=== PATIENT | female | born 1955 | race Caucasian/White ===

== ENCOUNTER → 2016-05-25 | Outpatient (CLI) | payer OTHER ==
[~2016-05-25] VITALS: Ht 162.6 cm; Wt 114.9 kg
[~2016-05-25] MED LIST: AMLO-114 PO; BUPR-83 PO; CHOL200010 PO; DULO-24 PO; ERGO500037 PO; LOSA100T65 PO; OMEP20CA59 PO; PHEN30CA PO; VALA500T60 PO; VITAMIN B12 SL
[2016-05-25 14:53] VITALS: BP 150/89; PULSE 98; Ht 162.6 cm; Wt 114.9 kg
== END | disposition home or self-care (01) ==
LOC: C.NEUR 14:08
PROVIDERS: ATTEND Internal Medicine Pulmonary Disease
DX: G47.33 Obstructive sleep apnea (adult) (pediatric) (principal); D86.9 Sarcoidosis, unspecified; J45.909 Unspecified asthma, uncomplicated

== ENCOUNTER → 2016-10-12 | Outpatient (CLI) | payer OTHER ==
[2016-10-12 12:44] LABS: ALT/SGPT 44 U/L (12-78); BLOOD UREA NITROGEN 17 mg/dl (7-18); BUN/CREATININE RATIO 20.9 (10-20); CARBON DIOXIDE 31 mmol/L (21-32); CHLORIDE 107 mmol/L (98-107); CREATININE 0.79 mg/dl (0.60-1.20); GLUCOSE 114 mg/dl (70-99); POTASSIUM 4.1 mmol/L (3.5-5.1); SODIUM 142 mmol/L (136-145)
[2016-10-12 12:47] LABS: ALKALINE PHOSPHATASE 76 U/L (45-117); AST/SGOT 26 U/L (15-37)
[2016-10-12 12:51] LABS: CALCIUM 9.5 mg/dl (8.5-10.1)
[2016-10-12 13:20] LABS: ESTIMATED AVERAGE GLUCOSE 131 mg/dl; HA1C FLAG Normal (Normal)
== END | disposition home or self-care (01) ==
LOC: C.LABPVFM 10:27
PROVIDERS: ATTEND Nurse Practitioner
DX: R73.03 Prediabetes (principal); I10 Essential (primary) hypertension; E55.9 Vitamin D deficiency, unspecified; R00.2 Palpitations; R61 Generalized hyperhidrosis; R60.9 Edema, unspecified; E78.5 Hyperlipidemia, unspecified

== ENCOUNTER → 2016-10-27 | Outpatient (CLI) | payer OTHER | END | disposition home or self-care (01) | LOC: C.LABPVFM 13:14 | PROVIDERS: ATTEND Nurse Practitioner | DX: R00.2 Palpitations (principal) ==

== ENCOUNTER → 2017-01-11 | Outpatient (CLI) | payer OTHER ==
[~2017-01-11] VITALS: Ht 162.6 cm; Wt 115.3 kg
[~2017-01-11] MED LIST changes: +PHEN1CAP PO; -PHEN30CA PO
[2017-01-11 14:03] VITALS: BP 126/84; PULSE 86; Ht 162.6 cm; Wt 115.3 kg
== END | disposition home or self-care (01) ==
LOC: C.NEUR 13:48
PROVIDERS: ATTEND Physician Assistant
DX: G47.33 Obstructive sleep apnea (adult) (pediatric) (principal); D86.9 Sarcoidosis, unspecified

== ENCOUNTER → 2017-01-26 | Outpatient (CLI) | payer OTHER ==
--- NOTE | 2017-01-26 15:59 | DIAGNOSTIC IMAGING REPORT ---
TWO VIEW CHEST CLINICAL HISTORY: Sarcoidosis. FINDINGS: PA and lateral chest radiographs are compared to study dated 12/10/2015. The examination is degraded by large body habitus. The cardiomediastinal silhouette is unremarkable. There is mild atherosclerotic calcification of the thoracic aorta. There are low lung volumes with chronic elevation of the right hemidiaphragm. The lungs and pleural spaces are clear. There is no pneumothorax. The skeletal structures are osteopenic. The bony thorax appears intact. Fusion hardware is seen in the lower cervical spine. A gastric band is present in left upper quadrant. IMPRESSION: No active disease in the chest. Electronically signed by: Kelvin Erwin M.D. 01/26/2017 2:55 PM Dictated Date/Time: 01/26/2017 2:54 PM
== END | disposition home or self-care (01) ==
LOC: C.RADPV 14:38
PROVIDERS: ATTEND Physician Assistant
DX: D86.9 Sarcoidosis, unspecified (principal)

== ENCOUNTER → 2017-02-10 | Outpatient (CLI) | payer OTHER | END | disposition home or self-care (01) | LOC: C.LABPVFM 17:48 | PROVIDERS: ATTEND Family Medicine | DX: J02.9 Acute pharyngitis, unspecified (principal) ==

== ENCOUNTER → 2017-06-08 | Outpatient (CLI) | payer OTHER ==
[~2017-06-08] MED LIST changes: -PHEN1CAP PO; +PHEN30CA PO
[2017-06-08 13:28] LABS: HEMOGLOBIN A1C 6.3 % (4.5-5.6)
[2017-06-08 13:31] LABS: BLOOD UREA NITROGEN 15 mg/dl (7-18); CALCIUM 9.3 mg/dl (8.5-10.1); CARBON DIOXIDE 27 mmol/L (21-32); CREATININE 0.89 mg/dl (0.60-1.20); GLUCOSE 143 mg/dl (70-99); POTASSIUM 3.7 mmol/L (3.5-5.1); SODIUM 137 mmol/L (136-145)
[2017-06-08 13:34] LABS: CHOLESTEROL 219 mg/dl (0-200); LDL CHOLESTEROL CALCULATED 125 mg/dl
== END | disposition home or self-care (01) ==
LOC: C.LABPVFM 09:00
PROVIDERS: ATTEND Nurse Practitioner
DX: E55.9 Vitamin D deficiency, unspecified (principal); E78.5 Hyperlipidemia, unspecified; I10 Essential (primary) hypertension; R73.01 Impaired fasting glucose

== ENCOUNTER → 2017-07-23 | Outpatient (CLI) | payer OTHER ==
[~2017-07-23] MED LIST changes: -BUPR-83 PO; -CHOL200010 PO; +FLUT0.15 NAE; +FURO-85 PO; +HYDR12.55 PO; +MECL1TAB42 PO; +METF500T5 PO; -PHEN30CA PO; +POTA10CA28 PO; +PRVHFAIN INH
--- NOTE | 2017-07-23 11:01 | DIAGNOSTIC IMAGING REPORT ---
CHEST 2 VIEWS ROUTINE CLINICAL HISTORY: COUGH, FATIGUE dyspnea COMPARISON STUDY: 01/26/2017 FINDINGS: The bones soft tissues and hemidiaphragms are normal. The cardiomediastinal silhouette is normal. The lungs are clear. The pulmonary vasculature is normal. IMPRESSION: Negative chest. The above report was generated using voice recognition software. It may contain grammatical, syntax or spelling errors. Electronically signed by: Magdy Holland M.D. 07/23/2017 10:59 AM Dictated Date/Time: 07/23/2017 10:59 AM
== END | disposition home or self-care (01) ==
LOC: C.RADPV 10:42
PROVIDERS: ATTEND Nurse Practitioner
DX: R05 Cough (principal); R53.83 Other fatigue

== ENCOUNTER 2017-08-05 16:33 | Emergency (ER) | payer OTHER ==
[~2017-08-05] VITALS: Ht 165.1 cm; Wt 115.0 kg
[2017-08-05 16:36] VITALS: TEMP 36.7; Ht 165.1 cm; Wt 115.0 kg
[2017-08-05] MEDS ORDERED: SODIUM CHLORIDE 0.9% 1000ML 1,000 ML IV STA (17:27)
[2017-08-05] MEDS ORDERED: ONDANSETRON INJ 2 MG/ML 2 ML VIAL IV STA (17:27)
[2017-08-05] MEDS ORDERED: FAMOTIDINE 20MG/5ML IV PUSH IV STA (17:27)
--- NOTE | 2017-08-05 17:34 | EMERGENCY ROOM VISIT NOTE ---
History Report prepared by Tess: Brandon Clay Under the Supervision of: Dr. Genesis Murillo D.O. First contact with patient: 17:13 Chief Complaint: CHEST PAIN Stated Complaint: CHEST PAIN/VOMITING History of Present Illness The patient is a 62 year old female who presents to the Emergency Room with complaints of worsening chest pain starting last night. The patient additionally notes that she started vomiting last night, and she has been unable to keep anything down including food, liquid, and medications. She notes that she has this chest pain constantly even without vomiting, and she states that the pain is worse with laying flat. The patient notes that she has been sick on and off for the past month, and she had flu, then bronchitis, and then a stomach bug. The patient states that she has had similar chest pain years ago , and it turned out to be arthritis, and she states that she has a history of GERD. She has had an endoscopy, and she had a hiatal hernia, and she did not have any ulcers or bleeding. The patient denies any recent dietary changes or medication changes other than some nausea medications last week. She additionally notes that she has been having some abdominal pain where she had a Lap Band. The patient denies any diarrhea, change in bowel movements, black stools, bloody stools, trouble urinating, fevers, chills, and new leg swelling. The patient is a former smoker, and she states that she has a family history of heart attacks at the age of 70. Source of History: patient Onset: last night Position: chest Timing: worsening Modifying Factors (Worsening): other (laying down) Associated Symptoms: + vomiting, + abdominal pain, No fevers, No chills, No diarrhea Review of Systems See HPI for pertinent positives & negatives. A total of 10 systems reviewed and were otherwise negative. Past Medical & Surgical Medical Problems: (1) Anxiety (2) Asthma (3) Asthma, Unspecified (4) CAD (coronary artery disease) (5) Depression (6) Dyslipidemia (7) Gastroesophageal reflux (8) Genital herpes (9) GERD (gastroesophageal reflux disease) (10) Hypertension (11) Hypertension Nos (12) Lumbago (13) Obesity (14) Prediabetes (15) Sarcoidosis (16) Sarcoidosis (17) Vitamin B12 deficiency (18) Vitamin D deficiency Surgical Problems: (1) History of appendectomy (2) History of appendectomy (3) History of cervical spinal arthrodesis (4) History of cholecystectomy (5) History of laparoscopic adjustable gastric banding (6) History of tubal ligation (7) Hx of cholecystectomy (8) LAP-BAND surgery status Family History No pertinent family history Social History Smoking Status: Former Smoker Marital Status: Housing Status: lives with family Occupation Status: employed Current/Historical Medications Scheduled Albuterol (Ventolin Hfa), 2 PUFFS INH PRN Amlodipine (Norvasc), 5 MG PO QPM Duloxetine HCl (Cymbalta), 40 CAP PO QPM Ergocalciferol (Vitamin D 03893 Unit), 50,000 UNIT PO WK Fluticasone Propionate (Nasal) (Flonase Allergy Relief), 1 SPRAY KOFI DAILY Losartan Potassium (Cozaar), 100 MG PO QPM Meclizine Hcl (Meclizine Hcl), 1 TAB PO PRN Metformin Hcl Er (Glucophage Er), 2 TAB PO DAILY Omeprazole (Prilosec), 20 MG PO DAILY Potassium Chloride (Micro-K Ext Rel), 10 MEQ PO PRN Valacyclovir (Valtrex), 500 MG PO QPM Scheduled PRN Furosemide (Lasix), 0.5 TAB PO DAILY PRN for PRN Allergies Coded Allergies: WERNER Inhibitors (Verified Allergy, Unknown, UNKNOWN, 08/05/17) Clarithromycin (Verified Allergy, Unknown, UNKNOWN, 08/05/17) Hydrochlorothiazide (Verified Allergy, Unknown, ., 12/10/15) Meloxicam (Verified Allergy, Unknown, UNKNOWN, 12/10/15) Rofecoxib (Verified Allergy, Unknown, UNKNOWN, 12/10/15) Sulfa Antibiotics (Verified Allergy, Unknown, "SULFA DRUGS" ALLERGY, ) Prochlorperazine (Verified Adverse Reaction, Unknown, NERVOUS LEGS, ) Physical Exam Vital Signs Date Time Temp Pulse Resp B/P (MAP) Pulse Ox O2 Delivery O2 Flow Rate FiO2 08/05/17 22:27 78 16 131/108 96 08/05/17 21:46 81 16 179/115 95 Room Air 08/05/17 20:41 87 18 96 Room Air 08/05/17 20:06 92 16 175/110 96 Room Air 08/05/17 18:30 79 08/05/17 17:55 81 12 191/116 98 Room Air 08/05/17 17:48 97 Room Air 08/05/17 17:45 97 Room Air 08/05/17 16:36 36.7 93 18 150/104 95 Room Air Physical Exam GENERAL: alert, well appearing, well nourished, no distress, non-toxic EYE EXAM: normal conjunctiva, PERRL and EOM's grossly intact OROPHARYNX: no exudate, no erythema, lips, buccal mucosa, and tongue normal and mucous membranes are dry. NECK: supple, no nuchal rigidity, no adenopathy, non-tender LUNGS: Clear to auscultation. No wheezes rhonchi or rales. Normal chest wall mechanics HEART: no murmurs, S1 normal and S2 normal CHEST: Some tenderness to the left sternal border and epigastric and left costal margin inferiorly. ABDOMEN: abdomen soft, normo-active bowel sounds, no masses, no rebound or guarding. BACK: Back is symmetrical on inspection and there is no deformity, no midline tenderness, no CVA tenderness. SKIN: no rashes and no bruising UPPER EXTREMITIES: upper extremities are grossly normal. LOWER EXTREMITIES: No pitting edema. NEURO EXAM: Normal sensorium, cranial nerves II-XII grossly intact, normal speech, no gross weakness of arms, no gross weakness of legs. Medical Decision & Procedures ER Provider Diagnostic Interpretation: ABDOMEN 2VIEW W/PA CHEST RTN HISTORY: 62 years-old Female chest pain, epigastric pain, vomiting acute atypical chest pain with vomiting and epigastric pain COMPARISON: Chest radiographs 07/23/2017 TECHNIQUE: PA view of the chest with erect and supine views of the abdomen FINDINGS: Cardiac silhouette is mildly enlarged. Atherosclerosis of the aorta. No pneumothorax, pleural effusion, focal airspace consolidation or overt pulmonary edema. Mild right hemidiaphragmatic elevation. The bones of the chest appear to be grossly intact. Fusion hardware of the cervical spine is noted. Cholecystectomy clips noted. Gastric band of the left upper abdomen is noted with increased phi Angle of approximately 80 degrees. There is a small air-fluid level of the epigastric abdomen possibly stomach. Bowel gas pattern is nonobstructive with air filled nondilated small bowel the central abdomen. No pneumatosis or pneumoperitoneum identified. Moderate stool volume throughout the colon suggest constipation. No urolith identified. Calcifications of the pelvis suggest phleboliths. IMPRESSION: 1. No acute process of the chest. 2. Nonobstructive bowel gas pattern without pneumoperitoneum. 3. Gastric band of the left upper abdomen is noted with increased phi Angle of approximately 80 degrees. Correlate clinically to assess for band malfunction. 4. Suggested constipation. The above report was generated using voice recognition software. It may contain grammatical, syntax or spelling errors. Electronically signed by: Trace Souza M.D. 08/05/2017 6:33 PM Dictated Date/Time: 08/05/2017 6:26 PM ABDOMEN AND PELVIS CT WITH IV AND ORAL CONTRAST CT DOSE: 1418.27 mGy.cm HISTORY: Acute epigastric abdominal pain with gastric band epigastric pain; prior lap band TECHNIQUE: Multiaxial CT images of the abdomen and pelvis were performed following the use of intravenous and oral contrast. A dose lowering technique was utilized adhering to the principles of ALARA. COMPARISON STUDY: Acute abdominal series radiographs of same day.. FINDINGS: 5 mm nodule of the right lower lobe is seen on image 19 series 3 is mild subsegmental groundglass right basilar opacities suggesting atelectasis. There is no pneumatosis or pneumoperitoneum identified. Imaged inferior cardiac chambers are unremarkable with coronary arterial disease. Prior cholecystectomy. Decreased attenuation of the liver suggests fatty infiltration. Liver otherwise appears unremarkable. Spleen, pancreas and adrenal glands are within normal limits. Mild nonspecific bilateral perinephric stranding. There is contrast in the bilateral renal collecting systems secondary to delayed phase of imaging. No renal calculi or obstructive uropathy identified. No filling defects identified within the collecting systems or ureters. No suspicious renal mass lesions. Urinary bladder, uterus and adnexa are unremarkable. Mild atherosclerosis of the aorta without aneurysm. No bulky adenopathy. Surgical karen are noted within the right inguinal tissues. Gastric band is in place with abnormal phi angle redemonstrated of approximately 80 degrees. Port of the anterior left abdominal wall is noted with catheter leading up to the gastric band appearing to be in place. The band itself appears intact surrounding the upper gastric lumen. No evidence of band fracture or distal migration. Oral contrast is noted within the distal esophagus, gastric pouch, distal stomach and also within the small bowel excluding obstruction. No surrounding inflammatory changes. No bowel obstruction or focal bowel wall thickening identified. Mild colonic diverticulosis without CT evidence of acute diverticulitis. Moderate volume of formed stool throughout the colon compatible with constipation. The appendix is not definitively seen, likely surgically absent. Soft tissues are unremarkable. Bone on of the left iliac wing. No suspicious bone lesions are identified. Multilevel degenerative changes about the spine. IMPRESSION: 1. Gastric band in place with no definite evidence of band malposition, erosion or gastric perforation. Oral contrast is present within the gastric pouch, distal gastric lumen and small bowel excluding obstruction. No focal bowel wall thickening. 2. Mild colonic diverticulosis without diverticulitis. 3. Suggested constipation. 4. Fatty infiltration of the liver. 5. Prior cholecystectomy. Electronically signed by: Trace Souza M.D. 08/05/2017 9:38 PM Dictated Date/Time: 08/05/2017 9:26 PM Laboratory Results 08/05/17 17:42 Red Blood Count 5.09, Mean Corpuscular Volume 93.7, Mean Corpuscular Hemoglobin 31.8, Mean Corpuscular Hemoglobin Concent 34.0, Mean Platelet Volume 10.4, Neutrophils (%) (Auto) 67.0, Lymphocytes (%) (Auto) 23.2, Monocytes (%) (Auto) 7.4, Eosinophils (%) (Auto) 1.6, Basophils (%) (Auto) 0.6, Neutrophils # (Auto) 6.53, Lymphocytes # (Auto) 2.26, Monocytes # (Auto) 0.72, Eosinophils # (Auto) 0.16, Basophils # (Auto) 0.06 08/05/17 17:42 Test 08/05/17 17:42 08/05/17 20:40 White Blood Count 9.75 K/uL (4.8-10.8) Red Blood Count 5.09 M/uL (4.2-5.4) Hemoglobin 16.2 g/dL (12.0-16.0) Hematocrit 47.7 % (37-47) Mean Corpuscular Volume 93.7 fL (80-100) Mean Corpuscular Hemoglobin 31.8 pg (25-34) Mean Corpuscular Hemoglobin Concent 34.0 g/dl (32-36) Platelet Count 278 K/uL (130-400) Mean Platelet Volume 10.4 fL (7.4-10.4) Neutrophils (%) (Auto) 67.0 % Lymphocytes (%) (Auto) 23.2 % Monocytes (%) (Auto) 7.4 % Eosinophils (%) (Auto) 1.6 % Basophils (%) (Auto) 0.6 % Neutrophils # (Auto) 6.53 K/uL (1.4-6.5) Lymphocytes # (Auto) 2.26 K/uL (1.2-3.4) Monocytes # (Auto) 0.72 K/uL (0.11-0.59) Eosinophils # (Auto) 0.16 K/uL (0-0.5) Basophils # (Auto) 0.06 K/uL (0-0.2) RDW Standard Deviation 46.1 fL (36.4-46.3) RDW Coefficient of Variation 13.3 % (11.5-14.5) Immature Granulocyte % (Auto) 0.2 % Immature Granulocyte # (Auto) 0.02 K/uL (0.00-0.02) Prothrombin Time 10.1 SECONDS (9.0-12.0) Prothromb Time International Ratio 1.0 (0.9-1.1) D-Dimer 380 ug/L FEU (0-500) Anion Gap 7.0 mmol/L (3-11) Est Creatinine Clear Calc Drug Dose 81.9 ml/min Estimated GFR () 79.9 Estimated GFR (Non- 69.0 BUN/Creatinine Ratio 14.4 (10-20) Calcium Level 9.7 mg/dl (8.5-10.1) Magnesium Level 2.3 mg/dl (1.8-2.4) Total Bilirubin 0.6 mg/dl (0.2-1) Aspartate Amino Transf (AST/SGOT) 50 U/L (15-37) Alanine Aminotransferase (ALT/SGPT) 114 U/L (12-78) Alkaline Phosphatase 86 U/L (45-117) Troponin I < 0.015 ng/ml (0-0.045) Pro-B-Type Natriuretic Peptide 57 pg/ml (0-900) Total Protein 8.0 gm/dl (6.4-8.2) Albumin 4.1 gm/dl (3.4-5.0) Globulin 3.9 gm/dl (2.5-4.0) Albumin/Globulin Ratio 1.1 (0.9-2) Lipase 213 U/L (73-393) Thyroid Stimulating Hormone (TSH) 1.210 uIu/ml (0.300-4.500) Influenza Type A Antigen Neg for Influ A (NEG) Influenza Type B Antigen Neg for Influ B (NEG) Bedside Troponin I < 0.030 ng/ml (0-0.045) Laboratory results per my review. Medications Administered Medications (Trade) Dose Ordered Sig/Jose Luis Route Start Time Stop Time Status Last Admin Dose Admin Sodium Chloride 1,000 ml @ 999 mls/hr Q1H1M STAT IV 08/05/17 17:27 08/05/17 18:27 DC 08/05/17 17:54 999 MLS/HR Famotidine (Pepcid 20mg Iv Push) 20 mg ONE STAT IV 08/05/17 17:27 08/05/17 17:30 DC 08/05/17 17:54 20 MG Ondansetron HCl (Zofran Inj) 4 mg NOW STAT IV 08/05/17 17:27 08/05/17 17:30 DC 08/05/17 17:54 4 MG Acetaminophen 650 mg/Empty Bag 65 ml @ 260 mls/hr NOW STAT IV 08/05/17 18:06 08/05/17 18:20 DC 08/05/17 18:25 260 MLS/HR Amlodipine Besylate (Norvasc Tab) 10 mg NOW ONCE PO 08/05/17 19:15 08/05/17 19:16 DC 08/05/17 19:34 5 MG Losartan Potassium (coZAAR TAB) 100 mg NOW STAT PO 08/05/17 19:05 08/05/17 19:06 DC 08/05/17 19:34 100 MG Al Hydroxide/Mg Hydroxide (Maalox Susp) 30 ml NOW STAT PO 08/05/17 19:41 08/05/17 19:42 DC 08/05/17 20:05 30 ML ECG Per My Interpretation Indication: chest pain Rate (beats per minute): 81 Rhythm: normal sinus Findings: no acute ischemic change, left axis deviation, no ectopy ED Course 1712: The patient was evaluated in room C11. A complete history and physical exam was performed. 1846: Pt states feeling slightly better. 2047: Pt tolerating po, no further vomiting. Updated on results. 2135: Pt improved, updated on all results. Medical Decision Differential diagnosis: Etiologies such as cardiac ischemia, aortic dissection, pulmonary embolism, pneumonia, pneumothorax, musculoskeletal, infections, pericarditis, myocarditis , esophageal rupture, gastrointestinal, as well as others were entertained. Patient improved her following stomach medications and IV fluids. Labs and imaging are reassuring. I do not suspect an acute malfunction of the patient's lap band, occult GI bleed, perforation, mesenteric ischemia, bowel obstruction. I have a low suspicion for ACS despite patient's risk factors. Troponins 2 negative. Doubt dissection, PE, or other acute pulmonary pathology. Likely patient's pain related to an exacerbation of her GERD/gastritis due to recent vomiting. Patient with recent illness was likely viral given exposure to sick contacts. Patient has ondansetron at home that she was previously given. Doubt additional occult infectious etiology. Mildly elevated LFTs likely reactive secondary to recent viral syndrome. Patient's hypertension here likely due to having missed her usual blood pressure medications today due to nausea and vomiting this morning. Patient given a dose of her usual medications here following improvement in her symptoms with improvement in her blood pressure subsequently. Medication Reconcilliation Current Medication List: was personally reviewed by me Blood Pressure Screening Patient's blood pressure: Elevated blood pressure Blood pressure disposition: Referred to PCP Impression Primary Impression: Non-cardiac chest pain Additional Impressions: Epigastric pain Vomiting GERD (gastroesophageal reflux disease) Elevated LFTs Hypertension Scribe Attestation The scribe's documentation has been prepared under my direction and personally reviewed by me in its entirety. I confirm that the note above accurately reflects all work, treatment, procedures, and medical decision making performed by me. Departure Information Dispostion Home / Self-Care Referrals No Doctor, Assigned (PCP) Patient Instructions My [facility] Additional Instructions Please sip clear liquids and frequent intervals to stay well-hydrated. Please continue your regular medications as prescribed. Please eat a bland diet and avoid acidic food until you are feeling better as this could contribute to your reflux and stomach irritation. Please avoid any tomato-based products, citrus fruits, coffee, alcohol, or soda. Please call follow-up with your family doctor as a precaution. If you have any recurrent pain, develop trouble breathing, fevers or chills, recurrent vomiting, noticed black or bloody stools , or you have any other new or concerning symptoms, please return the emergency room. Please have your family doctor recheck your liver function tests as a precaution as 2 of them were very slightly elevated. This may be reactive secondary to your recent illness. Problem Qualifiers Additional Impressions: Vomiting Vomiting type: unspecified Vomiting Intractability: non-intractable Nausea presence: with nausea Qualified Codes: R11.2 - Nausea with vomiting, unspecified GERD (gastroesophageal reflux disease) Esophagitis presence: esophagitis presence not specified Qualified Codes: K21.9 - Gastro-esophageal reflux disease without esophagitis Hypertension Hypertension type: essential hypertension Qualified Codes: I10 - Essential ( primary) hypertension
[2017-08-05 17:45] VITALS: O2SAT 97
[2017-08-05] MEDS ORDERED: PRLSR20 PO (17:49)
[2017-08-05 17:56] LABS: BASO % 0.6 %; BASO ABS # 0.06 K/uL (0-0.2); EOS % 1.6 %; EOS ABS # 0.16 K/uL (0-0.5); HEMATOCRIT 47.7 % (37-47); HEMOGLOBIN 16.2 g/dL (12.0-16.0); IG# 0.02 K/uL (0.00-0.02); LYMPH % 23.2 %; LYMPH ABS # 2.26 K/uL (1.2-3.4); MEAN CELL VOLUME 93.7 fL (80-100); MEAN CORPUSCULAR HEMOGLOBIN 31.8 pg (25-34); MEAN PLATELET VOLUME 10.4 fL (7.4-10.4); MONO % 7.4 %; MONO ABS # 0.72 K/uL (0.11-0.59); NEUT ABS # 6.53 K/uL (1.4-6.5); PLATELET COUNT 278 K/uL (130-400); RED CELL DISTRIBUTION WIDTH CV 13.3 % (11.5-14.5); RED CELL DISTRIBUTION WIDTH SD 46.1 fL (36.4-46.3); WHITE BLOOD COUNT 9.75 K/uL (4.8-10.8)
[2017-08-05] MEDS ORDERED: ACETAMINOPHEN IV 650 MG in EMPTY BAG 0 ML IV STA (18:06)
[2017-08-05 18:16] LABS: INFLUENZA B ANTIGEN Neg for Influ B (NEG)
[2017-08-05 18:19] LABS: ALBUMIN 4.1 gm/dl (3.4-5.0); ALT/SGPT 114 U/L (12-78); BLOOD UREA NITROGEN 13 mg/dl (7-18); CALCIUM 9.7 mg/dl (8.5-10.1); CARBON DIOXIDE 28 mmol/L (21-32); CREATININE 0.89 mg/dl (0.60-1.20); GLUCOSE 131 mg/dl (70-99); LIPASE 213 U/L (73-393); POTASSIUM 3.5 mmol/L (3.5-5.1); SODIUM 137 mmol/L (136-145)
[2017-08-05 18:30] LABS: ALKALINE PHOSPHATASE 86 U/L (45-117); AST/SGOT 50 U/L (15-37)
--- NOTE | 2017-08-05 18:34 | DIAGNOSTIC IMAGING REPORT ---
ABDOMEN 2VIEW W/PA CHEST RTN HISTORY: 62 years-old Female chest pain, epigastric pain, vomiting acute atypical chest pain with vomiting and epigastric pain COMPARISON: Chest radiographs 07/23/2017 TECHNIQUE: PA view of the chest with erect and supine views of the abdomen FINDINGS: Cardiac silhouette is mildly enlarged. Atherosclerosis of the aorta. No pneumothorax, pleural effusion, focal airspace consolidation or overt pulmonary edema. Mild right hemidiaphragmatic elevation. The bones of the chest appear to be grossly intact. Fusion hardware of the cervical spine is noted. Cholecystectomy clips noted. Gastric band of the left upper abdomen is noted with increased phi Angle of approximately 80 degrees. There is a small air-fluid level of the epigastric abdomen possibly stomach. Bowel gas pattern is nonobstructive with air filled nondilated small bowel the central abdomen. No pneumatosis or pneumoperitoneum identified. Moderate stool volume throughout the colon suggest constipation. No urolith identified. Calcifications of the pelvis suggest phleboliths. IMPRESSION: 1. No acute process of the chest. 2. Nonobstructive bowel gas pattern without pneumoperitoneum. 3. Gastric band of the left upper abdomen is noted with increased phi Angle of approximately 80 degrees. Correlate clinically to assess for band malfunction. 4. Suggested constipation. The above report was generated using voice recognition software. It may contain grammatical, syntax or spelling errors. Electronically signed by: Trace Souza M.D. 08/05/2017 6:33 PM Dictated Date/Time: 08/05/2017 6:26 PM
[2017-08-05] MEDS ORDERED: LOSARTAN POTASSIUM 50 MG TAB PO STA (19:05)
[2017-08-05] MEDS ORDERED: AMLODIPINE BESYLATE 5 MG TAB PO ONE (19:15)
[2017-08-05] MEDS ORDERED: OPTIRAY 320 IV PRN (19:30)
[2017-08-05] MEDS ORDERED: ALUMINUM/MAGNESIUM SUSP 30 ML UDC PO STA (19:41)
--- NOTE | 2017-08-05 21:59 | DIAGNOSTIC IMAGING REPORT ---
ABDOMEN AND PELVIS CT WITH IV AND ORAL CONTRAST CT DOSE: 1418.27 mGy.cm HISTORY: Acute epigastric abdominal pain with gastric band epigastric pain; prior lap band TECHNIQUE: Multiaxial CT images of the abdomen and pelvis were performed following the use of intravenous and oral contrast. A dose lowering technique was utilized adhering to the principles of ALARA. COMPARISON STUDY: Acute abdominal series radiographs of same day.. FINDINGS: 5 mm nodule of the right lower lobe is seen on image 19 series 3 is mild subsegmental groundglass right basilar opacities suggesting atelectasis. There is no pneumatosis or pneumoperitoneum identified. Imaged inferior cardiac chambers are unremarkable with coronary arterial disease. Prior cholecystectomy. Decreased attenuation of the liver suggests fatty infiltration. Liver otherwise appears unremarkable. Spleen, pancreas and adrenal glands are within normal limits. Mild nonspecific bilateral perinephric stranding. There is contrast in the bilateral renal collecting systems secondary to delayed phase of imaging. No renal calculi or obstructive uropathy identified. No filling defects identified within the collecting systems or ureters. No suspicious renal mass lesions. Urinary bladder, uterus and adnexa are unremarkable. Mild atherosclerosis of the aorta without aneurysm. No bulky adenopathy. Surgical karen are noted within the right inguinal tissues. Gastric band is in place with abnormal phi angle redemonstrated of approximately 80 degrees. Port of the anterior left abdominal wall is noted with catheter leading up to the gastric band appearing to be in place. The band itself appears intact surrounding the upper gastric lumen. No evidence of band fracture or distal migration. Oral contrast is noted within the distal esophagus, gastric pouch, distal stomach and also within the small bowel excluding obstruction. No surrounding inflammatory changes. No bowel obstruction or focal bowel wall thickening identified. Mild colonic diverticulosis without CT evidence of acute diverticulitis. Moderate volume of formed stool throughout the colon compatible with constipation. The appendix is not definitively seen, likely surgically absent. Soft tissues are unremarkable. Bone on of the left iliac wing. No suspicious bone lesions are identified. Multilevel degenerative changes about the spine. IMPRESSION: 1. Gastric band in place with no definite evidence of band malposition, erosion or gastric perforation. Oral contrast is present within the gastric pouch, distal gastric lumen and small bowel excluding obstruction. No focal bowel wall thickening. 2. Mild colonic diverticulosis without diverticulitis. 3. Suggested constipation. 4. Fatty infiltration of the liver. 5. Prior cholecystectomy. Electronically signed by: Trace Souza M.D. 08/05/2017 9:38 PM Dictated Date/Time: 08/05/2017 9:26 PM
[2017-08-05 22:27] VITALS: BP 131/108; PULSE 78; O2SAT 96
== END 2017-08-05 22:23 | disposition home or self-care (01) ==
LOC: C.EDB 16:33 → C.EDC 22:23
DX: R07.89 Other chest pain (principal); R10.13 Epigastric pain; R11.10 Vomiting, unspecified; K21.9 Gastro-esophageal reflux disease without esophagitis; I10 Essential (primary) hypertension; R94.5 Abnormal results of liver function studies; F41.9 Anxiety disorder, unspecified; J45.909 Unspecified asthma, uncomplicated; I25.10 Atherosclerotic heart disease of native coronary artery without angina pectoris; E78.5 Hyperlipidemia, unspecified; E66.9 Obesity, unspecified; D86.9 Sarcoidosis, unspecified; E55.9 Vitamin D deficiency, unspecified; E53.8 Deficiency of other specified B group vitamins; R73.03 Prediabetes; Z87.42 Personal history of other diseases of the female genital tract; Z87.891 Personal history of nicotine dependence; Z79.899 Other long term (current) drug therapy; Z88.8 Allergy status to other drugs, medicaments and biological substances; Z88.2 Allergy status to sulfonamides; Z88.1 Allergy status to other antibiotic agents

== ENCOUNTER 2017-08-09 08:53 | Emergency (ER) | payer OTHER ==
[~2017-08-09] VITALS: Ht 162.6 cm; Wt 114.2 kg
[~2017-08-09 08:53] MED LIST changes: -HYDR12.55 PO; -OMEP20CA59 PO; +PRLSR20 PO; -VITAMIN B12 SL
[2017-08-09 08:56] VITALS: TEMP 36.8; Ht 162.6 cm; Wt 114.2 kg
[2017-08-09 09:09] VITALS: O2SAT 96
[2017-08-09] MEDS ORDERED: SODIUM CHLORIDE 0.9% 1000ML 1,000 ML IV STA ×2 (09:35→10:53)
[2017-08-09] MEDS ORDERED: ONDANSETRON INJ 2 MG/ML 2 ML VIAL IV STA (09:35)
[2017-08-09 10:05] LABS: BASO ABS # 0.06 K/uL (0-0.2); EOS ABS # 0.17 K/uL (0-0.5); HEMATOCRIT 43.8 % (37-47); IG# 0.01 K/uL (0.00-0.02); LYMPH % 30.6 %; LYMPH ABS # 1.76 K/uL (1.2-3.4); MEAN CELL VOLUME 93.6 fL (80-100); MEAN CORPUSCULAR HEMOGLOBIN 32.1 pg (25-34); MEAN CORPUSCULAR HGB CONC 34.2 g/dl (32-36); MEAN PLATELET VOLUME 9.9 fL (7.4-10.4); MONO % 9.6 %; MONO ABS # 0.55 K/uL (0.11-0.59); NEUT % 55.6 %; PLATELET COUNT 238 K/uL (130-400); RED CELL DISTRIBUTION WIDTH CV 13.5 % (11.5-14.5); RED CELL DISTRIBUTION WIDTH SD 46.4 fL (36.4-46.3); WHITE BLOOD COUNT 5.75 K/uL (4.8-10.8)
[2017-08-09 10:19] LABS: PTT PATIENT 27.3 SECONDS (21.0-31.0)
[2017-08-09 10:31] LABS: ALBUMIN 3.6 gm/dl (3.4-5.0); ALT/SGPT 81 U/L (12-78); BLOOD UREA NITROGEN 12 mg/dl (7-18); CALCIUM 9.1 mg/dl (8.5-10.1); CARBON DIOXIDE 28 mmol/L (21-32); CREATININE 0.98 mg/dl (0.60-1.20); GLUCOSE 142 mg/dl (70-99); POTASSIUM 3.5 mmol/L (3.5-5.1); SODIUM 139 mmol/L (136-145)
--- NOTE | 2017-08-09 10:34 | DIAGNOSTIC IMAGING REPORT ---
CHEST 2 VIEWS ROUTINE CLINICAL HISTORY: cough dyspnea COMPARISON STUDY: 08/05/2017 FINDINGS: Mild stable cardia megaly. Lungs are clear. Diaphragms smooth. The catheter is again noted over the upper abdominal region with evidence for a gastric sleeve procedure. IMPRESSION: No acute process. The above report was generated using voice recognition software. It may contain grammatical, syntax or spelling errors. Electronically signed by: Magdy Holland M.D. 08/09/2017 10:33 AM Dictated Date/Time: 08/09/2017 10:32 AM
[2017-08-09 10:36] LABS: ALKALINE PHOSPHATASE 74 U/L (45-117); AST/SGOT 46 U/L (15-37); TOTAL PROTEIN 7.2 gm/dl (6.4-8.2)
[2017-08-09 11:44] VITALS: BP 145/77; PULSE 72; O2SAT 97
[2017-08-09] MEDS ORDERED: BENZ1CAP90 PO (11:45)
--- NOTE | 2017-08-09 11:47 | EMERGENCY ROOM VISIT NOTE ---
History First contact with patient: 09:24 Chief Complaint: DIZZY Stated Complaint: DIZZY, HEADACHE, PAIN IN LEGS, ONLY SOFT FOOD DOWN Nursing Triage Summary: pt reports tx for NV on . on Wed started with dizziness and HULL has been able to drink powerade nothing else History of Present Illness The patient is a 62 year old female who presents to the Emergency Room with complaints of dizziness, nausea, vomiting since last Wednesday. Patient states she has been sick since July 06. She states over the past week, she has been experiencing nausea, vomiting, diarrhea, and increased dizziness. She denies any fever, chills, chest pain, dyspnea, urinary tract infection symptoms , or constipation. She states diarrhea lasted for 2-3 days, but has improved now. She has experienced a cough for the past several weeks, and states this is nonproductive, but does not appear to be getting better. Yesterday, she did experience some bilateral leg cramping, but she has not been taking her potassium supplements as usual. She describes a burning sensation in her esophagus which began after the vomiting. She also reports some epigastric abdominal discomfort which began followed by vomiting. The patient does have a history of cholecystectomy and appendectomy. She states her symptoms significantly worsened this morning, and she was having extreme dizziness with attempts to ambulate. She was recently seen here in the emergency department for noncardiac chest pain, and states that has improved. Review of Systems A complete 10 point review of systems was reviewed with the patient with pertinent positives and negatives as per history of present illness. All else were negative. Past Medical/Surgical History Medical Problems: (1) Anxiety (2) Asthma (3) Asthma, Unspecified (4) CAD (coronary artery disease) (5) Depression (6) Dyslipidemia (7) Gastroesophageal reflux (8) Genital herpes (9) GERD (gastroesophageal reflux disease) (10) Hypertension (11) Hypertension Nos (12) Lumbago (13) Obesity (14) Prediabetes (15) Sarcoidosis (16) Sarcoidosis (17) Vitamin B12 deficiency (18) Vitamin D deficiency Surgical Problems: (1) History of appendectomy (2) History of appendectomy (3) History of cervical spinal arthrodesis (4) History of cholecystectomy (5) History of laparoscopic adjustable gastric banding (6) History of tubal ligation (7) Hx of cholecystectomy (8) LAP-BAND surgery status Family History No pertinent family history Social History Smoking Status: Never Smoker Marital Status: Housing Status: lives with family Occupation Status: employed Current/Historical Medications Scheduled Albuterol (Ventolin Hfa), 2 PUFFS INH PRN Amlodipine (Norvasc), 5 MG PO QPM Duloxetine HCl (Cymbalta), 40 CAP PO QPM Ergocalciferol (Vitamin D 15594 Unit), 50,000 UNIT PO WK Fluticasone Propionate (Nasal) (Flonase Allergy Relief), 1 SPRAY KOFI DAILY Losartan Potassium (Cozaar), 100 MG PO QPM Meclizine Hcl (Meclizine Hcl), 1 TAB PO PRN Metformin Hcl Er (Glucophage Er), 2 TAB PO DAILY Omeprazole (Prilosec), 20 MG PO DAILY Potassium Chloride (Micro-K Ext Rel), 10 MEQ PO PRN Valacyclovir (Valtrex), 500 MG PO QPM Scheduled PRN Benzonatate (Tessalon Perles), 200 MG PO TID PRN for Cough Furosemide (Lasix), 0.5 TAB PO DAILY PRN for PRN Physical Exam Vital Signs Date Time Temp Pulse Resp B/P (MAP) Pulse Ox O2 Delivery O2 Flow Rate FiO2 08/09/17 11:44 72 18 145/77 97 Room Air 08/09/17 10:35 72 16 129/84 95 Room Air 08/09/17 09:14 89 08/09/17 09:09 96 Room Air 08/09/17 09:09 71 16 170/78 96 Room Air 76 141/89 91 119/91 08/09/17 08:56 36.8 76 20 142/80 96 Room Air Physical Exam VITALS: Vitals are noted on the nurse's note and reviewed by myself. Vital signs stable. GENERAL: This is a 62-year-old obese white female, in no acute distress, nondiaphoretic, well-developed well-nourished. SKIN: The skin was without rashes, erythema, edema, or bruising. There is no tenting of the skin. Capillary reflex less than 2 seconds. HEAD: Normocephalic atraumatic. EARS: External auditory canals clear, tympanic membranes pearly tinajero without erythema or effusion bilaterally. EYES: Pupils equal round and reactive to light and accommodation. Conjunctivae without injection, sclerae without icterus. Extraocular movements intact. NOSE: Patent, turbinates without inflammation or discharge. No sinus tenderness. MOUTH: Mucous membranes moist. Tonsils are not enlarged. Pharynx without erythema or exudate. Uvula midline. Airway patent. Tongue does not deviate. NECK: Supple without nuchal rigidity. No lymphadenopathy. No thyromegaly. Cervical spine is nontender. No JVD. HEART: Regular rate and rhythm without murmurs gallops or rubs. LUNGS: Clear to auscultation bilaterally without wheezes, rales or rhonchi. No dullness to percussion. No retractions or accessory muscle use. ABDOMEN: Positive bowel sounds x 4. Normal tympanic percussion. Mild epigastric tenderness. The abdomen was otherwise soft, nontender, without masses or organomegaly. Levine sign negative. No guarding or rebound tenderness. MUSCULOSKELETAL: No muscle atrophy, erythema, or edema noted. Full range of motion without joint tenderness in all extremities. No tenderness to palpation. Normal gait. Strength 5/5 throughout. No calf tenderness or edema noted. NEURO: Patient was alert and oriented to person place and time. Normal sensation to light and sharp touch. Deep tendon reflexes 2+ throughout. No focal neurological deficits. Medical Decision & Procedures ER Provider Diagnostic Interpretation: CHEST 2 VIEWS ROUTINE CLINICAL HISTORY: cough dyspnea COMPARISON STUDY: 08/05/2017 FINDINGS: Mild stable cardia megaly. Lungs are clear. Diaphragms smooth. The catheter is again noted over the upper abdominal region with evidence for a gastric sleeve procedure. IMPRESSION: No acute process. The above report was generated using voice recognition software. It may contain grammatical, syntax or spelling errors. Electronically signed by: Magdy Holland M.D. 08/09/2017 10:33 AM Dictated Date/Time: 08/09/2017 10:32 AM Laboratory Results 08/09/17 09:40 Red Blood Count 4.68, Mean Corpuscular Volume 93.6, Mean Corpuscular Hemoglobin 32.1, Mean Corpuscular Hemoglobin Concent 34.2, Mean Platelet Volume 9.9, Neutrophils (%) (Auto) 55.6, Lymphocytes (%) (Auto) 30.6, Monocytes (%) (Auto) 9.6, Eosinophils (%) (Auto) 3.0, Basophils (%) (Auto) 1.0, Neutrophils # (Auto) 3.20, Lymphocytes # (Auto) 1.76, Monocytes # (Auto) 0.55, Eosinophils # (Auto) 0.17, Basophils # (Auto) 0.06 08/09/17 09:40 Test 08/09/17 09:40 White Blood Count 5.75 K/uL (4.8-10.8) Red Blood Count 4.68 M/uL (4.2-5.4) Hemoglobin 15.0 g/dL (12.0-16.0) Hematocrit 43.8 % (37-47) Mean Corpuscular Volume 93.6 fL (80-100) Mean Corpuscular Hemoglobin 32.1 pg (25-34) Mean Corpuscular Hemoglobin Concent 34.2 g/dl (32-36) Platelet Count 238 K/uL (130-400) Mean Platelet Volume 9.9 fL (7.4-10.4) Neutrophils (%) (Auto) 55.6 % Lymphocytes (%) (Auto) 30.6 % Monocytes (%) (Auto) 9.6 % Eosinophils (%) (Auto) 3.0 % Basophils (%) (Auto) 1.0 % Neutrophils # (Auto) 3.20 K/uL (1.4-6.5) Lymphocytes # (Auto) 1.76 K/uL (1.2-3.4) Monocytes # (Auto) 0.55 K/uL (0.11-0.59) Eosinophils # (Auto) 0.17 K/uL (0-0.5) Basophils # (Auto) 0.06 K/uL (0-0.2) RDW Standard Deviation 46.4 fL (36.4-46.3) RDW Coefficient of Variation 13.5 % (11.5-14.5) Immature Granulocyte % (Auto) 0.2 % Immature Granulocyte # (Auto) 0.01 K/uL (0.00-0.02) Prothrombin Time 10.7 SECONDS (9.0-12.0) Prothromb Time International Ratio 1.0 (0.9-1.1) Activated Partial Thromboplast Time 27.3 SECONDS (21.0-31.0) Partial Thromboplastin Ratio 1.1 Anion Gap 7.0 mmol/L (3-11) Est Creatinine Clear Calc Drug Dose 72.8 ml/min Estimated GFR () 71.2 Estimated GFR (Non- 61.4 BUN/Creatinine Ratio 12.6 (10-20) Calcium Level 9.1 mg/dl (8.5-10.1) Total Bilirubin 0.6 mg/dl (0.2-1) Aspartate Amino Transf (AST/SGOT) 46 U/L (15-37) Alanine Aminotransferase (ALT/SGPT) 81 U/L (12-78) Alkaline Phosphatase 74 U/L (45-117) Troponin I < 0.015 ng/ml (0-0.045) Total Protein 7.2 gm/dl (6.4-8.2) Albumin 3.6 gm/dl (3.4-5.0) Globulin 3.6 gm/dl (2.5-4.0) Albumin/Globulin Ratio 1.0 (0.9-2) Medications Administered Medications (Trade) Dose Ordered Sig/Jose Luis Route Start Time Stop Time Status Last Admin Dose Admin Sodium Chloride 1,000 ml @ 999 mls/hr Q1H1M STAT IV 08/09/17 09:35 08/09/17 10:35 DC 08/09/17 09:39 999 MLS/HR Ondansetron HCl (Zofran Inj) 4 mg NOW STAT IV 08/09/17 09:35 08/09/17 09:38 DC 08/09/17 09:43 4 MG Sodium Chloride 1,000 ml @ 999 mls/hr Q1H1M STAT IV 08/09/17 10:53 08/09/17 11:53 DC 08/09/17 10:57 999 MLS/HR ECG Per My Interpretation Indication: abdominal pain Rate (beats per minute): 71 Rhythm: normal sinus Findings: left axis deviation, no ectopy Comparison ECG Date: 08/05/2017 Change: no significant change ED Course The patient was seen and evaluated as above. Orthostatic vital signs obtained. Previous EMR reviewed. IV access obtained, labs drawn. EKG performed. This was interpreted by myself as above. The patient was given 1 L normal saline solution bolus and 4 mg IV Zofran. The patient was reassessed. The patient was given a second liter normal saline solution bolus. The patient was reassessed and is feeling much better. Discharge instructions reviewed, the patient was discharged home in good condition. Medical Decision This is a 62-year-old female patient presents to the emergency department today complaining of nausea, vomiting, diarrhea, and more recently dizziness. Patient states she has been tolerating fluids, however has had decreased desire to drink. She has been sick since June with cough and congestion. She has been seen multiple times by her PCP and here, and states she has not had any specific diagnosis made. The patient's orthostatic vital signs are positive for decrease in blood pressure and increase in heart rate. Her symptoms are consistent with a mild dehydration, which I suspect is associated with her recent gastroenteritis symptoms. The patient's work was without significant abnormalities. Her white blood cell count, AST, and ALT have improved since her last visit. Troponin was negative. CMP was without significant renal, hepatic, electrolyte abnormalities. Patient's chest x-ray does not show any signs of pneumonia. I suspect an acute bronchitis associated with the gastroenteritis. The patient was reassessed multiple times throughout her stay , and did improve after each liter of normal saline solution. I encouraged the patient to drink plenty of fluids over the next few days, and will provide her with Tessalon Perles to help with the cough. She does have an inhaler at home, and I encouraged her to use this consistently for the next few days to help with the cough as well. The patient was agreeable to the plan of care. All questions were answered to the patient and her satisfaction. Etiologies such as diverticulitis, obstruction, inflammatory bowel disease, renal colic, PUD, biliary pathology, pancreatitis, mesenteric ischemia, aortic pathology, infections, pneumonia, bronchitis, genitourinary, UTI, perforated viscus, cardiac etiology, malignancy, as well as others were entertained. Medication Reconcilliation Current Medication List: was personally reviewed by me Blood Pressure Screening Patient's blood pressure: Elevated blood pressure Blood pressure disposition: Elevated BP felt to be situational Impression Primary Impression: Gastroenteritis Additional Impressions: Bronchitis Dizziness Departure Information Dispostion Home / Self-Care Condition GOOD Prescriptions Benzonatate (Tessalon Perles) 200 Mg Cap 200 MG PO TID Y for Cough, #30 CAP Prov: Nga Lopez PA-C 08/09/17 Referrals Maria C Lemus C.R.N.P (PCP) Patient Instructions Chest Cold (Bronchitis) - [facility], ED Dizziness [facility] [place] Gastroenteritis Viral, My [facility] Additional Instructions You were seen and evaluated in the emergency department today for acute bronchitis/gastroenteritis with dizziness as a symptom. I do feel that based on your symptoms, and the duration of illness, this is likely viral in nature. As discussed, antibiotics will not treat viral illness. Use your albuterol inhaler for wheezing or difficulty breathing. Use this inhaler 1-2 puffs every 4-6 hours as needed. If you find that your symptoms are not improving with the use of the inhaler, or if you find that you need to use the inhaler longer than 1 week, return to the ED or follow-up with your PCP. You have been given benzonatate (Tessalon Pearles) to be used for coughing. These should be taken 1 capsule up to 3 times per day as needed for coughing. Do not take this medication more than prescribed. You may use this medication in addition to OTC cough medications. For your sore throat, you may use a 1:1 mixture of liquid Benadryl and liquid Maalox. Gargle and spit this mixture. It will help to soothe the throat and provide some relief. Drink warm tea with honey and lemon, as this will also help to soothe the throat. Gargle with salt water frequently. Ibuprofen(Motrin, Advil) may be used for fever or pain. Use 400mg every six hours as needed. Take with food. Avoid using more than 2400mg in a 24 hour period. Do not use 2400mg per day for more than three consecutive days without physician direction. Prolonged inappropriate use can lead to stomach upset or ulcers. (AND/OR) Acetaminophen(Tylenol) may be used for fever or pain. Use 500-1000mg every six hours as needed. Avoid using more than 3000mg in a 24 hour period. For congestion, you may use Flonase OTC. You may want to consider zinc, echinacea, and vitamin C to help boost your immunity. Please get plenty of rest and drink plenty of fluids. Please return or follow-up with your PCP in 24-48 hours for re-evaluation of your symptoms. Return to the emergency department for coughing up blood, fainting, difficulty breathing, chest pain, worsening symptoms, or for other concerns. Problem Qualifiers
== END 2017-08-09 11:55 | disposition home or self-care (01) ==
LOC: C.EDB 08:55
DX: K52.9 Noninfective gastroenteritis and colitis, unspecified (principal); J20.9 Acute bronchitis, unspecified; R42 Dizziness and giddiness; J45.909 Unspecified asthma, uncomplicated; K21.9 Gastro-esophageal reflux disease without esophagitis; I10 Essential (primary) hypertension; R73.03 Prediabetes; F41.8 Other specified anxiety disorders; E78.5 Hyperlipidemia, unspecified; Z90.49 Acquired absence of other specified parts of digestive tract; Z90.89 Acquired absence of other organs; Z79.84 Long term (current) use of oral hypoglycemic drugs

== ENCOUNTER → 2017-09-17 | Outpatient (CLI) | payer OTHER ==
[~2017-09-17] MED LIST changes: +BENZ1CAP90 PO
[2017-09-17 12:43] LABS: BASO % 1.1 %; BASO ABS # 0.08 K/uL (0-0.2); EOS % 2.1 %; EOS ABS # 0.15 K/uL (0-0.5); HEMATOCRIT 41.6 % (37-47); IG# 0.01 K/uL (0.00-0.02); LYMPH % 36.3 %; LYMPH ABS # 2.61 K/uL (1.2-3.4); MEAN CELL VOLUME 95.9 fL (80-100); MEAN CORPUSCULAR HEMOGLOBIN 32.3 pg (25-34); MEAN CORPUSCULAR HGB CONC 33.7 g/dl (32-36); MEAN PLATELET VOLUME 10.9 fL (7.4-10.4); MONO % 6.8 %; MONO ABS # 0.49 K/uL (0.11-0.59); NEUT % 53.6 %; NEUT ABS # 3.86 K/uL (1.4-6.5); PLATELET COUNT 278 K/uL (130-400); RED CELL DISTRIBUTION WIDTH CV 13.9 % (11.5-14.5); RED CELL DISTRIBUTION WIDTH SD 48.9 fL (36.4-46.3)
[2017-09-17 13:06] LABS: ALBUMIN 3.6 gm/dl (3.4-5.0); ALT/SGPT 74 U/L (12-78); AST/SGOT 41 U/L (15-37); BLOOD UREA NITROGEN 16 mg/dl (7-18); CARBON DIOXIDE 26 mmol/L (21-32); CREATININE 0.93 mg/dl (0.60-1.20); GLUCOSE 125 mg/dl (70-99); POTASSIUM 3.8 mmol/L (3.5-5.1); SODIUM 139 mmol/L (136-145)
[2017-09-17 13:09] LABS: ALKALINE PHOSPHATASE 68 U/L (45-117)
== END | disposition home or self-care (01) ==
LOC: C.LABPVFM 09:39
PROVIDERS: ATTEND Family Medicine
DX: R74.8 Abnormal levels of other serum enzymes (principal); K21.9 Gastro-esophageal reflux disease without esophagitis

== ENCOUNTER → 2017-09-20 | Outpatient (CLI) | payer OTHER ==
[~2017-09-20] MED LIST changes: +AMLO5TAB2 PO; +ASCO1CHW17 PO; +BIOT1CAP8; +CHOLCAP5 PO; +CYAN30003 PO; +MAGN400T6 PO; +MELO-84 PO; +OMEP-334 PO; +ONDA4TAB9 PO; +ZINC1CAP PO
--- NOTE | 2017-09-21 12:47 | MAMMOGRAPHY REPORT ---
BILATERAL DIGITAL SCREENING MAMMOGRAM TOMOSYNTHESIS WITH CAD: 09/20/2017 CLINICAL HISTORY: Asymmetry Routine screening. Patient has no complaints. TECHNIQUE: Breast tomosynthesis in addition to standard 2D mammography was performed. Current study was also evaluated with a Computer Aided Detection (CAD) system. COMPARISON: Comparison is made to exams dated: 06/05/2016 mammogram, 02/26/2015 mammogram, 05/29/2011 ma mmogram, 05/28/2010 mammogram, 12/03/2009 mammogram, and 05/29/2009 ultrasound - [facility] ter. BREAST COMPOSITION: The tissue of both breasts is almost entirely fatty. FINDINGS: There is a newly visualized 4.5 mm oval circumscribed mass in the lower inner anterior lef t breast, for which additional targeted ultrasound and possible additional mammographic views are rec ommended, although this could represent a cyst. There is asymmetry of the size of the breasts, likely normal anatomic variation. No other suspicious mass, architectural distortion or cluster of microcalcifications is seen. IMPRESSION: ACR BI-RADS CATEGORY 0: INCOMPLETE EVALUATION: NEED ADDITIONAL IMAGING EVALUATION The newly visualized 4.5 mm oval circumscribed mass in the lower inner anterior left breast needs add itional evaluation. The patient will be called to schedule an appointment. Approximately 10% of breast cancers are not detected with mammography. A negative mammographic report should not delay biopsy if a clinically suggestive mass is present. Amberly Boswell M.D. ay/:09/20/2017 14:49:37 Cleaning And Maintenance Worker: Nicolette CORDON(Mumtaz)(Ludwig), [facility] letter sent: Addl Imaging 0 BI-RADS Code: ACR BI-RADS Category 0: Incomplete Evaluation: Need Additional Imaging Evaluation
== END | disposition home or self-care (01) ==
LOC: C.MAMM 11:13
PROVIDERS: ATTEND Nurse Practitioner
DX: Z12.31 Encounter for screening mammogram for malignant neoplasm of breast (principal); N63.24 Unspecified lump in the left breast, lower inner quadrant

== ENCOUNTER → 2017-09-27 | Outpatient (CLI) | payer OTHER ==
[~2017-09-27] MED LIST changes: -AMLO-114 PO; -DULO-24 PO; -ERGO500037 PO; -PRLSR20 PO
== END | disposition home or self-care (01) ==
LOC: C.LABPVFM 14:35
PROVIDERS: ATTEND Nurse Practitioner
DX: R53.83 Other fatigue (principal); R42 Dizziness and giddiness

== ENCOUNTER → 2017-09-29 | Outpatient (CLI) | payer OTHER ==
--- NOTE | 2017-09-29 15:07 | MAMMOGRAPHY REPORT ---
ULTRASOUND OF LEFT BREAST: 09/29/2017 CLINICAL HISTORY: 62-year-old woman called back from screening mammography for an oval circumscribed 4 mm mass in the lower inner anterior left breast. Patient also reports increased size of a lump in the 1:00 left breast, which she reports as fatty tissue. COMPARISON: Comparison is made to exams dated: 09/20/2017 mammogram, 06/05/2016 ultrasound, 06/05/2016 mammogram, 02/26/2015 mammogram, 05/29/2011 mammogram, and 05/28/2010 mammogram - [facility] nter. FINDINGS: Targeted ultrasound was performed in the lower inner quadrant including 9:00 axis of the l eft breast to assess for the oval circumscribed mammographic mass. In the 9:00 left breast, 2 cm fro m the nipple, there is an oval parallel circumscribed anechoic cyst measuring 3.3 x 2.4 x 2.6 mm, cor responding in size, shape and location as the mammographic mass. This is benign and no further sachin p is needed at this time. Additional scanning was performed in the 1:00 left breast approximately 15 cm from the nipple, in the area of mass pointed out by the patient. Fat echotexture tissue is identified that is larger than t he [id number] of the ultrasound probe. It measures at least 2.2 x 4.5 x 3.2 cm and is most compat ible with a benign lipoma. IMPRESSION: ACR BI-RADS CATEGORY 2: BENIGN 1. The oval circumscribed mammographic mass in the left lower inner anterior breast correlates with a benign anechoic simple cyst on ultrasound, seen in the 9:00 axis. No further workup is needed at t his time. Return to annual screening mammography schedule. 2. The patient reports a lump in the left 1:00 breast may be increased in size and on targeted ultra sound this most likely represents a benign lipoma. However, continued clinical monitoring is recomme nded because if it continues to increase in size or becomes painful, surgical excision may be needed. Amberly Boswell M.D. ay/:09/29/2017 10:39:56 Charge Poster: Dr. Amberly Boswell, [facility] letter sent: Normal 1/2 BI-RADS Code: ACR BI-RADS Category 2: Benign
== END | disposition home or self-care (01) ==
LOC: C.MAMM 09:57
PROVIDERS: ATTEND Nurse Practitioner
DX: N63.24 Unspecified lump in the left breast, lower inner quadrant (principal)

== ENCOUNTER → 2017-09-30 | Day surgery (SDC) | payer OTHER ==
[2017-09-23 11:28] VITALS: Ht 162.6 cm; Wt 117.7 kg
[~2017-09-30] VITALS: Ht 162.6 cm; Wt 117.7 kg
[~2017-09-30] MED LIST changes: +LIDOCAINE HCL 2% 2 ML VIAL (20MG/ML) ONE; +PROPOFOL IV EMULSION 10 MG/ML 20 ML VIAL ONE; +SODIUM CHLORIDE 0.9% 500ML 500 ML IV ONE
--- NOTE | 2017-09-30 14:45 | Endo History and Physical ---
History & Physical Date of Service: September 30, 2017. Chief Complaint: Acid reflux Referring Physician: Angelina Gómez History of Present Illness 62 yo CF who presents for EGD secondary to GERD. Past Medical History Asthma, Anxiety, Reflux, High Cholesterol, Heart Disease, Hypertension, Depression Past Surgical History Hx Cardiac Surgery: No Hx Internal Defibrillator: No Hx Pacemaker: No Hx Abdominal Surgery: Yes (OPEN APPY, LAP BAND SURGERY, LAP GIOVANNA) Hx of Implantable Prosthesis: No Hx Post-Op Nausea and Vomiting: Yes Hx Cancer Surgery: No Hx Thoracic Surgery: Yes (2 CERVICAL FUSIONS) Hx Orthopedic: Yes (RT THUMB TRIGGER FINGER) Hx Urinary Tract Surgery: No Family History Colon CA, IBD Social History Smoking Status: Former Smoker Hx Substance Use: No Hx Alcohol Use: Yes (OCCASIONALLY) Allergies Coded Allergies: WERNER Inhibitors (Verified Allergy, Unknown, UNKNOWN, 09/23/17) Clarithromycin (Verified Allergy, Unknown, UNKNOWN, 09/23/17) Hydrochlorothiazide (Verified Allergy, Unknown, ., 09/23/17) Sulfa Antibiotics (Verified Allergy, Unknown, "SULFA DRUGS" ALLERGY, ) Prochlorperazine (Verified Adverse Reaction, Unknown, NERVOUS LEGS, 09/23/17 ) Current Medications Reported Home Medications Medications Dose Route/Sig Max Daily Dose Days Date Category Vitamin D3 (Cholecalciferol) 5,000 Unit Cap 1 Tab PO DAILY 09/23/17 Reported Ondansetron HCl (Ondansetron) 4 Mg Tab 1 Tab PO Q4 PRN 09/23/17 Reported Mobic (Meloxicam) 15 Mg Tab 1 Tab PO DAILY PRN 30 09/23/[address] (Omeprazole) 40 Mg Cap 1 Tab PO DAILY 09/23/17 Reported Norvasc (Amlodipine Besylate) 5 Mg Tab 1 Tab PO DAILY 30 09/23/17 Reported Vitamin B12 (Cyanocobalamin) 3,000 Mcg Sub 1 Tab PO DAILY 09/23/17 Reported Zinc Sulfate 220 Mg Cap 220 Mg PO DAILY 09/23/17 Reported Mag-Ox (Magnesium Oxide) 400 Mg Tab 400 Mg PO DAILY 09/23/17 Reported Vitamin C Adult Gummies 125 mg (Ascorbic Acid) 1 Chw Chw 1 Tab PO DAILY 09/23/17 Reported Biotin 1 Mg Cap 09/23/17 Reported Tessalon Perles (Benzonatate) 200 Mg Cap 200 Mg PO TID PRN 08/09/17 Rx Ventolin Hfa (Albuterol) 60 Puffs/5400 Mcg Aers 2 Puffs INH PRN 06/15/17 Reported Micro-K Ext Rel (Potassium Chloride) 10 Meq Capcr 10 Meq PO PRN 06/15/17 Reported Glucophage Er (Metformin HCl) 500 Mg Tab 2 Tab PO DAILY 06/15/17 Reported Meclizine Hcl 25 Mg Tab 1 Tab PO PRN 06/15/17 Reported Flonase Allergy Relief (Fluticasone Propionate (Nasal)) 50 Mcg/Act Spr 1 [place] KOFI DAILY 06/15/17 Reported Lasix (Furosemide) 20 Mg Tab 0.5 Tab PO DAILY PRN 06/15/17 Reported Valtrex (Valacyclovir HCl) 500 Mg Tab 500 Mg PO QPM 11/01/15 Reported Cozaar (Losartan Potassium) 100 Mg Tab 100 Mg PO QPM 11/01/15 Reported Vital Signs Weight (Kilograms): 117.73 Height (Feet): 5 Height (Inches): 4 Date Time Temp Pulse Resp B/P (MAP) Pulse Ox O2 Delivery O2 Flow Rate FiO2 09/30/17 14:36 36.6 75 20 161/108 (125) 95 Room Air Physical Exam General Appearance: WD/WN, no apparent distress Respiratory/Chest: Auscultation: breath sounds normal Cardiovascular: Heart Auscultation: RRR Abdomen: Bowel Sounds: normal Inspection & Palpation: soft, non-distended, no tenderness, guarding & rebound Assessment and Plan Assessment: 62 yo CF who presents for EGD secondary to GERD. Plan: Proceed with EGD.
--- NOTE | 2017-09-30 15:39 | Discharge Instructions ---
Endoscopy Patient Instructions Date / Procedure(s) Performed September 30, 2017. EGD Allergy Information Coded Allergies: WERNER Inhibitors (Verified Allergy, Unknown, UNKNOWN, 09/23/17) Clarithromycin (Verified Allergy, Unknown, UNKNOWN, 09/23/17) Hydrochlorothiazide (Verified Allergy, Unknown, ., 09/23/17) Sulfa Antibiotics (Verified Allergy, Unknown, "SULFA DRUGS" ALLERGY, ) Prochlorperazine (Verified Adverse Reaction, Unknown, NERVOUS LEGS, 09/23/17 ) Discharge Date / Findings September 30, 2017. Gastric antrum biopsies Medication Instructions Stopped Medication(s): Metformin, Vitamins OK to resume all medications today as prescribed Reported Home Medications Medications Dose Route/Sig Max Daily Dose Days Date Category Vitamin D3 (Cholecalciferol) 5,000 Unit Cap 1 Tab PO DAILY 09/23/17 Reported Ondansetron HCl (Ondansetron) 4 Mg Tab 1 Tab PO Q4 PRN 09/23/17 Reported Mobic (Meloxicam) 15 Mg Tab 1 Tab PO DAILY PRN 30 09/23/[address] (Omeprazole) 40 Mg Cap 1 Tab PO DAILY 09/23/17 Reported Norvasc (Amlodipine Besylate) 5 Mg Tab 1 Tab PO DAILY 30 09/23/17 Reported Vitamin B12 (Cyanocobalamin) 3,000 Mcg Sub 1 Tab PO DAILY 09/23/17 Reported Zinc Sulfate 220 Mg Cap 220 Mg PO DAILY 09/23/17 Reported Mag-Ox (Magnesium Oxide) 400 Mg Tab 400 Mg PO DAILY 09/23/17 Reported Vitamin C Adult Gummies 125 mg (Ascorbic Acid) 1 Chw Chw 1 Tab PO DAILY 09/23/17 Reported Biotin 1 Mg Cap 09/23/17 Reported Tessalon Perles (Benzonatate) 200 Mg Cap 200 Mg PO TID PRN 08/09/17 Rx Ventolin Hfa (Albuterol) 60 Puffs/5400 Mcg Aers 2 Puffs INH PRN 06/15/17 Reported Micro-K Ext Rel (Potassium Chloride) 10 Meq Capcr 10 Meq PO PRN 06/15/17 Reported Glucophage Er (Metformin HCl) 500 Mg Tab 2 Tab PO DAILY 06/15/17 Reported Meclizine Hcl 25 Mg Tab 1 Tab PO PRN 06/15/17 Reported Flonase Allergy Relief (Fluticasone Propionate (Nasal)) 50 Mcg/Act Spr 1 [place] KOFI DAILY 06/15/17 Reported Lasix (Furosemide) 20 Mg Tab 0.5 Tab PO DAILY PRN 06/15/17 Reported Valtrex (Valacyclovir HCl) 500 Mg Tab 500 Mg PO QPM 11/01/15 Reported Cozaar (Losartan Potassium) 100 Mg Tab 100 Mg PO QPM 11/01/15 Reported Provider Instructions Activity Restrictions - No exercising or heavy lifting for 24 hours. - Do not drink alcohol the day of the procedure. - Do not drive a car or operate machinery until the day after the procedure. - Do not make any important decisions or sign important papers in 24 hours after the procedure. Following Day: - Return to full activity which may include returning to work/school. Diet Start your diet with liquids and light foods (jello, soup, juice, toast). Then eat your usual diet if not nauseated. Treatment For Common After Affects For mild abdominal pain, bloating, or excessive gas: - Rest - Eat lightly - Lie on right side Follow-Up Information Follow-up with Angelina Gómez as scheduled Anesthesia Information What You Should Know You have had a procedure that required some medicine to reduce anxiety and discomfort. This treatment is called moderate sedation. After receiving the treatment, you may be sleepy, but you will be able to breathe on your own. The effects of the treatment may last for several hours. Follow these instructions along with Activity/Diet recommendations noted above: * Do NOT do anything where dizziness or clumsiness would be dangerous. * Rest quietly at home today, then you can be up and about tomorrow. * Have a responsible person stay with you the rest of today. * You may have had an I.V. today. If so, you may take the dressing off later today. Recommendations Call your doctor if: * Trouble breathing * Continuous vomiting for more than 24 hours * Temperature above 101 degrees * Severe abdominal pain or bloating * Pain not relieved by pain medicine ordered * There is increased drainage or redness from any incision * A large amount of rectal bleeding greater than 2-3 tablespoons. (If you had a polyp/s removed or have hemorrhoids, a small amount of blood - from the rectum is to be expected.) * You have any unanswered questions or concerns. IN THE EVENT OF A SERIOUS EMERGENCY, GO TO THE NEAREST EMERGENCY ROOM Your discharge instructions were prepared by provider Curt Pittman. Patient Instructions Signature Page Christianne Castro Patient (or Guardian) Signature/Date: I have read and understand the instructions given to me by my caregivers. Caregiver/RN/Doctor Signature/Date: The above-named patient and/or guardian has received patient instructions on this date. + Original Patient Signature Page (only) stays with chart. Please make copy for patient.
--- NOTE | 2017-09-30 15:42 | Anesthesiology Progress Note ---
Anesthesia Post Op Note Date & Time September 30, 2017 at 15:41 Vital Signs Vital Signs Past 12 Hours Date Time Temp Pulse Resp B/P (MAP) Pulse Ox O2 Delivery O2 Flow Rate FiO2 09/30/17 14:36 36.6 75 20 161/108 (125) 95 Room Air Notes Mental Status: alert / awake / arousable, participated in evaluation Pt Amnestic to Procedure: Yes Nausea / Vomiting: adequately controlled Pain: adequately controlled Airway Patency, RR, SpO2: stable & adequate BP & HR: stable & adequate Hydration State: stable & adequate Anesthetic Complications: no major complications apparent In PACU, pt awake on room air. BP 151/90, HR 75, O2 95%
--- NOTE | 2017-09-30 15:49 | GI REPORT ---
Patient Name: Christianne Castro Procedure Date: 09/30/2017 3:21 PM Date of : 1955 Admit Type: Outpatient Age: 62 Gender: Female Attending MD: Curt Pittman DO Procedure: Upper GI endoscopy Providers: Curt Pittman DO Referring MD: Nano Ramirez Indications: Gastro-esophageal reflux disease Medicines: Monitored Anesthesia Care Complications: No immediate complications. Estimated Blood Loss: Estimated blood loss: none. Procedure: Pre-Anesthesia Assessment: - Prior to the procedure, a History and Physical was performed, and patient medications and allergies were reviewed. The patient's tolerance of previous anesthesia was also reviewed. The risks and benefits of the procedure and the sedation options and risks were discussed with the patient. All questions were answered, and informed consent was obtained. Prior Anticoagulants: The patient has taken no previous anticoagulant or antiplatelet agents. ASA Grade Assessment: III - A patient with severe systemic disease. After reviewing the risks and benefits, the patient was deemed in satisfactory condition to undergo the procedure. After obtaining informed consent, the endoscope was passed under direct vision. Throughout the procedure, the patient's blood pressure, pulse, and oxygen saturations were monitored continuously. The scope was introduced through the mouth, and advanced to the second part of duodenum. The upper GI endoscopy was accomplished without difficulty. The patient tolerated the procedure well. Findings: The examined esophagus was normal. The entire examined stomach was normal. Biopsies were taken with a cold forceps for histology. The examined duodenum was normal. Impression: - Normal esophagus. - Normal stomach. Biopsied. - Normal examined duodenum. Recommendation: - Resume previous diet. - Continue present medications. - Await pathology results. - Return to primary care physician as previously scheduled. Curt Pittman DO 09/30/2017 3:48:54 PM This report has been signed electronically. Note Initiated On: 09/30/2017 3:21 PM Number of Addenda: 0 I attest to the content of the Intraoperative Record and orders documented therein, exceptions below {[id number]}
[2017-09-30 16:05] VITALS: BP 155/90; PULSE 77; O2SAT 99
== END | disposition home or self-care (01) ==
LOC: C.GI 14:08
PROVIDERS: ATTEND Internal Medicine
DX: R11.2 Nausea with vomiting, unspecified (principal); K21.9 Gastro-esophageal reflux disease without esophagitis; I10 Essential (primary) hypertension; G47.33 Obstructive sleep apnea (adult) (pediatric); J45.909 Unspecified asthma, uncomplicated; Z98.1 Arthrodesis status; Z88.2 Allergy status to sulfonamides; Z90.49 Acquired absence of other specified parts of digestive tract; Z87.891 Personal history of nicotine dependence; Z80.0 Family history of malignant neoplasm of digestive organs

== ENCOUNTER → 2017-12-27 | Outpatient (CLI) | payer OTHER ==
[~2017-12-27] MED LIST changes: -LIDOCAINE HCL 2% 2 ML VIAL (20MG/ML) ONE; +METO50TA16 PO; -PROPOFOL IV EMULSION 10 MG/ML 20 ML VIAL ONE; -SODIUM CHLORIDE 0.9% 500ML 500 ML IV ONE
--- NOTE | 2017-12-27 12:56 | DIAGNOSTIC IMAGING REPORT ---
RIGHT ANKLE 3 VIEWS CLINICAL HISTORY: Right ankle injury. FINDINGS: 3 views of the right ankle are obtained. No prior studies are available for comparison at the time of dictation. The skeletal structures are osteopenic. No fracture is seen. The ankle mortise is intact. There are large dorsal and plantar calcaneal enthesophytes. Degenerative spurring is seen along the dorsal aspect of the tarsal bones. There is no significant joint effusion. Mild soft tissue swelling is present around ankle. IMPRESSION: Mild soft tissue swelling with no right ankle fracture identified. Electronically signed by: Kelvin Erwni M.D. 12/27/2017 12:55 PM Dictated Date/Time: 12/27/2017 12:53 PM
== END | disposition home or self-care (01) ==
LOC: C.RADPV 11:56
PROVIDERS: ATTEND Nurse Practitioner
DX: S93.401A Sprain of unspecified ligament of right ankle, initial encounter (principal); X58.XXXA Exposure to other specified factors, initial encounter